=== PATIENT | male | born 2000 | race Two or more races ===

== ENCOUNTER 2018-10-26 13:16 | Emergency (ER) | payer MEDICAID ==
[~2018-10-26] VITALS: Ht 170.2 cm; Wt 72.6 kg
[2018-10-26 14:43] LABS: Basophils # (auto) 0.1 uL; Basophils % (auto) 0.6 % (0.0-2.0); Eosinophils # (auto) 0.2 uL; Eosinophils % (auto) 1.8 % (0.0-7.0); Hematocrit 46.3 % (41.0-53.0); Hemoglobin 15.5 g/dL (13.5-17.5); Lymphocytes # (auto) 2.2 uL; Lymphocytes % (auto) 21.9 % (10.0-50.0); Mean Corpuscular Hgb Conc. 33.5 g/dL (32.0-36.0); Mean Corpuscular Volume 92.5 fL (80.0-100.0); Monocytes # (auto) 0.7 uL; Monocytes % (auto) 6.9 % (0.0-12.0); Neutrophils % (auto) 68.8 % (37.0-80.0); Nucleated Red Blood Cells % 0.1 %; Platelet Count (auto) 272 10^3/uL (140-450); Red Cell Distribution Width 13.5 % (11.8-14.3); White Blood Cell 10.2 10^3/uL (4.4-10.8)
[2018-10-26 15:04] LABS: Potassium 3.8 mmol/L (3.5-5.1)
[2018-10-26 15:12] LABS: Albumin 4.4 g/dL (3.4-5.0); BUN/Creatinine Ratio 11.7; Bilirubin, Total 0.7 mg/dL (0.2-1.0); Calcium 9.1 mg/dL (8.5-10.1); Total Protein 8.3 g/dL (6.4-8.2)
[2018-10-26 16:26] VITALS: BP 111/67
== END 2018-10-26 16:35 | disposition home or self-care (01) ==
LOC: ER 13:21
DX: R10.12 Left upper quadrant pain (principal); R10.32 Left lower quadrant pain; Z88.0 Allergy status to penicillin
CPT/HCPCS: 36415; 74018; 74176; 80053; 85025